=== PATIENT | male | born 1935 ===

== ENCOUNTER → 2016-08-25 | Outpatient (CLI) | payer OTHER, BC | LOC: BHFA 11:00 | PROVIDERS: ATTEND Internal Medicine Cardiovascular Disease | DX: R94.31 Abnormal electrocardiogram [ECG] [EKG] (principal); I35.9 Nonrheumatic aortic valve disorder, unspecified; E78.00 Pure hypercholesterolemia, unspecified; I10 Essential (primary) hypertension ==

== ENCOUNTER → 2016-12-20 | Outpatient (CLI) | payer OTHER, BC | LOC: BHFA 09:30 | PROVIDERS: ATTEND Internal Medicine Interventional Cardiology | DX: I35.9 Nonrheumatic aortic valve disorder, unspecified (principal); R94.31 Abnormal electrocardiogram [ECG] [EKG] ==

== ENCOUNTER → 2017-06-13 | Outpatient (CLI) | payer OTHER, BC | LOC: BHFA 10:00 | PROVIDERS: ATTEND Internal Medicine Cardiovascular Disease | DX: I49.3 Ventricular premature depolarization (principal) ==

== ENCOUNTER → 2017-09-26 | Outpatient (CLI) | payer OTHER, BC | LOC: BHFA 09:00 | PROVIDERS: ATTEND Internal Medicine Cardiovascular Disease | DX: I47.2 Ventricular tachycardia (principal) ==

== ENCOUNTER → 2018-01-02 | Outpatient (CLI) | payer OTHER, BC | LOC: BHFA 08:30 | PROVIDERS: ATTEND Internal Medicine Cardiovascular Disease | DX: I35.0 Nonrheumatic aortic (valve) stenosis (principal) ==